=== PATIENT | female | born 1965 ===

== ENCOUNTER 2018-03-13 11:00 | Inpatient (IN) | payer OTHER ==
[~2018-03-13] VITALS: Ht 154.9 cm; Wt 78.5 kg
[2018-03-13] MEDS ORDERED: HUMALOG JU100 UNIT/1 (14:01)
[2018-03-13] MEDS ORDERED: LANTUS (14:01)
[2018-03-13] MEDS ORDERED: LIPITOR40 MG PO (14:02)
[2018-03-13] MEDS ORDERED: COREG CR20 MG PO (14:02)
[2018-03-13] MEDS ORDERED: SYNTH PO (14:03)
[2018-03-13] MEDS ORDERED: RANEXA500 MG PO (14:03)
[2018-03-13] MEDS ORDERED: ASPIR 8181 MG PO (14:04)
[2018-03-13] MEDS ORDERED: LOSARTAN-HCTZ1 EAC1 PO (14:05)
[2018-03-18] MEDS ORDERED: LANTUS SOL100 UNIT/1 SUBCUTANEO ×2 (14:20→14:22)
[2018-03-18] MEDS ORDERED: SYNTHROID175 MCG (14:21)
== END 2018-03-19 17:36 | disposition home or self-care (01) | DRG 475 ==
LOC: SURH 03-15 09:00 → O/R 03-15 09:23 → SURH 03-15 09:23
PROVIDERS: ADMIT Specialist
PROC: 0Y6F0ZZ Detachment at Right Knee Region, Open Approach (ICD-10-PCS; principal; 2018-03-15 09:00)
PROC: 02HV33Z Insertion of Infusion Device into Superior Vena Cava, Percutaneous Approach (ICD-10-PCS; 2018-03-16)
DX: M86.171 Other acute osteomyelitis, right ankle and foot (principal); L97.518 Non-pressure chronic ulcer of other part of right foot with other specified severity; N17.8 Other acute kidney failure; N18.1 Chronic kidney disease, stage 1; I12.9 Hypertensive chronic kidney disease with stage 1 through stage 4 chronic kidney disease, or unspecified chronic kidney disease; I25.10 Atherosclerotic heart disease of native coronary artery without angina pectoris; I73.89 Other specified peripheral vascular diseases; E03.8 Other specified hypothyroidism; E11.319 Type 2 diabetes mellitus with unspecified diabetic retinopathy without macular edema; E11.40 Type 2 diabetes mellitus with diabetic neuropathy, unspecified; Z86.73 Personal history of transient ischemic attack (TIA), and cerebral infarction without residual deficits; Z95.1 Presence of aortocoronary bypass graft; Z79.4 Long term (current) use of insulin